=== PATIENT | female | born 1985 | race Caucasian/White ===

== ENCOUNTER 2017-12-14 08:42 | Outpatient (RCR) | payer OTHER ==
[2016-08-31 02:15] VITALS: Ht 162.6 cm; Wt 55.1 kg
[2017-09-23 15:39] VITALS: BP 114/67
[2017-09-23 16:02] LABS: PLATELET COUNT, AUTOMATED 262 K/uL (150-450)
[2017-09-28 11:27] LABS: PLATELET COUNT, AUTOMATED 312 K/uL (150-450)
[2017-09-28 14:53] VITALS: BP 102/64
[2017-09-29 09:06] VITALS: BP 109/64
--- NOTE | 2017-09-29 17:41 | ONCOLOGY FOLLOW UP NOTE ---
EVENT DATE: September 29, 2017 DIAGNOSES 1. Hereditary hemochromatosis with heterozygous state for HFE gene, C282Y mutation. 2. Hypothyroidism. CHIEF COMPLAINT Patient is here today for followup of her hemachromatosis. HEMATOLOGY HISTORY Patient is a 32-year-old woman who for the last seven years did not have many periods because of repeated pregnancies. She was also maintained on high dose vitamins including iron. Patient was found to have a high iron and high liver function tests recently. Her iron studies on June 07, 2017 showed serum ferritin of 1474 with iron saturation more than 92%, TIBC was less than 211. Her liver enzymes showed mildly elevated ALT and AST, less than one and a half times normal. The patient had an ultrasound of the liver and gallbladder done on January 19, 2017 which showed mild hepatomegaly with increased echogenicity throughout the liver, which can be seen with fatty infiltration or other infiltrative process. Patient had genetic testing for hemochromatosis done on June 10, 2017 which came back positive for homozygous state for C282Y mutation. Patient started phlebotomy sessions in June 2017. After her first phlebotomy the patient got what looks like a vasovagal attack with fainting. She is doing fine currently. HISTORY OF PRESENT ILLNESS Patient is here today for followup of her hemachromatosis, on phlebotomy session currently. Patient is doing fine and she is totally asymptomatic. Patient has been evaluated at [facility] and she is doing fine currently. PAST MEDICAL HISTORY 1. Hereditary hemochromatosis. 2. Hypothyroidism on supplement. PAST SURGICAL HISTORY Cholecystectomy for gallstones. FAMILY HISTORY Negative for hemochromatosis. SOCIAL HISTORY Patient is with one son. 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 Denies any abuse of tobacco or illicit drugs. She occasionally drinks alcohol when she is not . CURRENT MEDICATIONS 1. Levothyroxine 75 mcg daily. 2. Calcium supplement. ALLERGIES No known drug allergies, except for DILAUDID which makes her agitated. REVIEW OF SYSTEMS CONSTITUTIONAL: No appetite or weight change. No fever, chills or sweating. No recent infection. HEENT: Ears: No tinnitus or hearing problem. Nose: No nasal discharge or epistaxis. Throat: No sore throat or mouth ulcers. Eyes: No diplopia or visual changes. RESPIRATORY: No shortness of breath. No cough, expectoration or hemoptysis. CARDIOVASCULAR: No chest pain, orthopnea, or paroxysmal nocturnal dyspnea (PND) . No edema. No palpitations. GASTROINTESTINAL: No nausea or vomiting. No diarrhea or constipation. No change in bowel movements. No heartburn or swallowing difficulties. No abdominal pain. No jaundice. No hematemesis, melena or rectal bleeding. GENITOURINARY: No hematuria or dysuria. MUSCULOSKELETAL: The patient has snore knuckles in the index and the middle fingers of the right hand. NEUROLOGICAL: She has tingling and numbness in the hands and feet sometimes. She has also headache. HEMATOLOGICAL: She is weak, tired and fatigued. SKIN: No skin rash or lumps. PSYCHIATRIC: No anxiety or depression. PHYSICAL EXAMINATION GENERAL: Looks stable. Well-developed, well-nourished, and in no acute distress. VITAL SIGNS: Blood pressure 109/64, pulse 90 per minute, respirations 16 per minute, temperature 98.8, pulse ox 96% on room air. HEENT: Head: Atraumatic. No sinus tenderness to palpation. Eyes: No icterus or conjunctivitis. Mouth and throat: No oral thrush or mucositis. NECK: Supple. No cervical or supraclavicular lymphadenopathy. LUNGS: Clear to auscultation and percussion bilaterally. HEART: Regular rate and rhythm. No gallops, murmurs, clicks or rubs. ABDOMEN: Soft and lax. No tenderness. No hepatosplenomegaly. No masses. EXTREMITIES: No cyanosis, clubbing or edema. LYMPHATICS: No peripheral lymphadenopathy. NEUROLOGICAL: Conscious, alert and oriented times three. No focal motor or sensory deficits. PSYCHIATRIC: Mood and affect appear normal. SKIN: No skin rash, bruise or purpuric eruption. DIAGNOSTIC DATA CBC showed a white count of 6.7, hemoglobin 13, hematocrit 37.4, platelets 212, 000. Serum iron 88, TIBC 232, iron saturation 37.9% and serum ferritin 153. Chem panel is totally normal except for carbon dioxide 20. ASSESSMENT 1. Hereditary hemochromatosis with homozygous state of HFE gene C282Y mutation. Patient currently on induction phlebotomy started June 16, 2017. She started on a weekly basis and currently every other week. Her initial ferritin level was 1474 and currently it is 153. Her iron saturation was initially 92% and currently 37.9%. Patient has been evaluated at [facility] and she had a liver biopsy which showed only focal portal fibrosis. There was evidence of mild microvesicular steatosis and marked iron deposition in her liver. They recommend to keep her iron with ferritin level between 50- 100. I am planning to continue her phlebotomy sessions every other week until we reach ferritin level around 50 and iron saturation below 60%. Then after that we will start maintenance phlebotomy sessions. I am planning to do a phlebotomy every two weeks for three sessions, and I will see her after that with CBC, chem panel and iron studies with ferritin at that time. 2. Hypothyroidism, on treatment. 3. Heterozygous state for factor V Leiden mutation. No indication of prophylactic anticoagulation at the moment as the patient does not have any history of DVT. Patient was advised to avoid hysterogenic compounds and periods of high risk of blood clotting like immobilization for any reason, like traveling for long distances, admission to the hospital, then the patient will need prophylactic Lovenox at that time. PLAN 1. Phlebotomize 500 mL of blood every two weeks for three times starting September 30, 2017. 2. Infuse 500 mL of normal saline before and after phlebotomy sessions. 3. CBC to be checked every two weeks. 4. Patient to return in two months with CBC, chem panel, iron studies with ferritin. 5. Patient is to contact us for any new concerns or complaints. TYRA
[2017-09-30] MEDS: NS(*) 0.9% 500 ML BAG 500 ML IV PRN ×2 (15:47→16:10)
[2017-09-30] MEDS: LIDOCAINE/SOD BICARB 8.4% SYR ID PRN (15:48)
[2017-09-30 16:03] VITALS: BP 100/71
[2017-10-14 15:52] LABS: PLATELET COUNT, AUTOMATED 320 K/uL (150-450)
[2017-10-14] MEDS: LIDOCAINE/SOD BICARB 8.4% SYR ID PRN (16:37)
[2017-10-14] MEDS: NS(*) 0.9% 500 ML BAG 500 ML IV PRN (16:37)
[2017-10-14 17:08] VITALS: BP 105/82
[2017-10-27] MEDS: NS(*) 0.9% 1000 ML BAG 1,000 ML IV PRN (09:30)
[2017-10-27 09:40] VITALS: BP 104/68
[2017-10-27] MEDS: LIDOCAINE/SOD BICARB 8.4% SYR ID PRN (09:44)
[2017-11-09 14:48] VITALS: BP 109/71
[2017-11-09 15:20] LABS: PLATELET COUNT, AUTOMATED 334 K/uL (150-450)
[2017-11-18 15:09] VITALS: BP 112/84
[2017-11-18] MEDS: LIDOCAINE/SOD BICARB 8.4% SYR ID PRN (15:19)
[2017-11-18] MEDS: NS(*) 0.9% 1000 ML BAG 1,000 ML IV PRN (15:30)
[2017-11-21 11:58] VITALS: BP 105/73
[2017-11-24 15:37] VITALS: BP 104/67
--- NOTE | 2017-11-24 20:29 | ONCOLOGY FOLLOW UP NOTE ---
EVENT DATE: November 24, 2017 DIAGNOSES 1. Hereditary hemochromatosis with heterozygous state for HFE gene, C282Y mutation. 2. Hypothyroidism. CHIEF COMPLAINT Patient is here today for followup of her hemochromatosis. HEMATOLOGY HISTORY Patient is a 32-year-old woman who for the last seven years did not have many periods because of repeated pregnancies. She was also maintained on high dose vitamins including iron. Patient was found to have a high iron and high liver function tests recently. Her iron studies on June 07, 2017 showed serum ferritin of 1474 with iron saturation more than 92%, TIBC was less than 211. Her liver enzymes showed mildly elevated ALT and AST, less than one and a half times normal. The patient had an ultrasound of the liver and gallbladder done on January 19, 2017 which showed mild hepatomegaly with increased echogenicity throughout the liver, which can be seen with fatty infiltration or other infiltrative process. Patient had genetic testing for hemochromatosis done on June 10, 2017 which came back positive for homozygous state for C282Y mutation. Patient started phlebotomy sessions in June 2017. After her first phlebotomy the patient got what looks like a vasovagal attack with fainting. She is doing fine currently. HISTORY OF PRESENT ILLNESS Patient is here today for followup of her hereditary hemochromatosis, on induction phlebotomy sessions currently. Patient is doing fine and she is totally asymptomatic, except for easy bruising sometimes. PAST MEDICAL HISTORY 1. Hereditary hemochromatosis. 2. Hypothyroidism on supplement. PAST SURGICAL HISTORY Cholecystectomy for gallstones. FAMILY HISTORY Negative for hemochromatosis. SOCIAL HISTORY Patient is with one son. 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 Denies any abuse of tobacco or illicit drugs. She occasionally drinks alcohol when she is not . CURRENT MEDICATIONS 1. Levothyroxine 75 mcg daily. 2. Calcium supplement. ALLERGIES No known drug allergies, except for DILAUDID which makes her agitated. REVIEW OF SYSTEMS CONSTITUTIONAL: No appetite or weight change. No fever, chills or sweating. No recent infection. HEENT: Ears: No tinnitus or hearing problem. Nose: No nasal discharge or epistaxis. Throat: No sore throat or mouth ulcers. Eyes: No diplopia or visual changes. RESPIRATORY: No shortness of breath. No cough, expectoration or hemoptysis. CARDIOVASCULAR: No chest pain, orthopnea, or paroxysmal nocturnal dyspnea (PND) . No edema. No palpitations. GASTROINTESTINAL: No nausea or vomiting. No diarrhea or constipation. No change in bowel movements. No heartburn or swallowing difficulties. No abdominal pain. No jaundice. No hematemesis, melena or rectal bleeding. GENITOURINARY: No hematuria or dysuria. MUSCULOSKELETAL: The patient has snore knuckles in the index and the middle fingers of the right hand. NEUROLOGICAL: She has tingling and numbness in the hands and feet sometimes. She has also headache. HEMATOLOGICAL: Patient bruises easily. SKIN: No skin rash or lumps. PSYCHIATRIC: No anxiety or depression. PHYSICAL EXAMINATION GENERAL: Looks stable. Well-developed, well-nourished, and in no acute distress. VITAL SIGNS: Blood pressure 104/67, pulse 82 per minute, respirations 16 per minute, temperature 97.7, pulse ox 94% on room air. HEENT: Head: Atraumatic. No sinus tenderness to palpation. Eyes: No icterus or conjunctivitis. Mouth and throat: No oral thrush or mucositis. NECK: Supple. No cervical or supraclavicular lymphadenopathy. LUNGS: Clear to auscultation and percussion bilaterally. HEART: Regular rate and rhythm. No gallops, murmurs, clicks or rubs. ABDOMEN: Soft and lax. No tenderness. No hepatosplenomegaly. No masses. EXTREMITIES: No cyanosis, clubbing or edema. LYMPHATICS: No peripheral lymphadenopathy. NEUROLOGICAL: Conscious, alert and oriented times three. No focal motor or sensory deficits. PSYCHIATRIC: Mood and affect appear normal. SKIN: No skin rash, bruise or purpuric eruption. DIAGNOSTIC DATA CBC showed a white count of 6.6, hemoglobin 13.9, hematocrit 39.7, platelets 260 ,000. Serum iron 95, TIBC 235, iron saturation 40.4% and ferritin level is 89. ASSESSMENT 1. Hereditary hemochromatosis with homozygous state of HFE gene C282Y mutation. Patient currently on induction phlebotomy started June 16, 2017. She started on a weekly basis and currently every other week. Her initial ferritin level was 1474 and currently it is 89. Her iron saturation initially was 92% and currently it is 40.4%. Patient has been evaluated at [facility] and she had a liver biopsy which showed only focal portal fibrosis. There is evidence of cirrhosis. There was mild microvesicular steatosis and marked iron deposition in the liver. They recommend to keep the iron and ferritin level below 50-100. I am planning to have two more phlebotomy sessions , and I will see her after that with CBC and iron studies with ferritin. My target for phlebotomy is to keep the ferritin below 50 and iron saturation below 60%. I explained that to the patient. She is agreeable with the plan of management. We will infuse normal saline 500 mL before and after the phlebotomy sessions. 2. Hypothyroidism, on treatment. 3. Heterozygous state for factor V Leiden mutation. No indication of prophylactic anticoagulation as the patient does not have any history of DVT so far. Patient was advised to avoid hysterogenic compounds, and to use prophylactic Lovenox at periods of increased blood clotting like immobilization for any reason. PLAN 1. Phlebotomize 500 mL of blood every other week for two times, to start November 25, 2017. 2. Infuse 500 mL of normal saline before and after phlebotomy sessions. 3. CBC to be checked prior to each phlebotomy, and to proceed with phlebotomy if hematocrit above 30%. 4. Patient to return in one month with CBC, iron studies with ferritin. 5. Patient is to contact us for any new concerns or complaints. [facility]
[2017-11-25 15:09] VITALS: BP 108/75
[2017-11-25] MEDS: NS(*) 0.9% 1000 ML BAG 1,000 ML IV PRN (15:25)
[2017-11-25] MEDS: LIDOCAINE/SOD BICARB 8.4% SYR ID PRN (15:26)
[2017-12-09] MEDS: LIDOCAINE/SOD BICARB 8.4% SYR ID PRN (15:34)
[2017-12-09] MEDS: NS(*) 0.9% 1000 ML BAG 1,000 ML IV PRN (15:35)
[2017-12-09 15:37] VITALS: BP 111/69
[~2017-12-14] VITALS: Ht 162.6 cm; Wt 55.1 kg
[~2017-12-14 08:42] MED LIST: ACET-1966 PO; ACET-3017 PO; ACYCLOVIR; AMOX500C7 PO; CEPH250C37 PO; DEXTROSE 5%(*) 100 ML BAG 100 ML IVPB PRN; DOCU-416 PO; DOXY-228 PO; HYDR-385 PO; IBU800 PO; IBUP600T22 PO; LEVO50TA86 PO; LOR5/325 PO; MET2 PO; NS(*) 0.9% 100 ML BAG 100 ML IVPB PRN; ONDA4TAB PO; OXYC-865 PO; PREN-127 PO; VALACYCLOVIR PO
[2017-12-14 09:17] VITALS: BP 116/59
[2017-12-15 15:02] VITALS: BP 107/70
--- NOTE | 2017-12-16 14:11 | [facility] ONCOLOGY NOTE ---
EVENT DATE: December 15, 2017 DIAGNOSES 1. Hereditary hemochromatosis with heterozygous state for HFE gene, C282Y mutation. 2. Hypothyroidism. CHIEF COMPLAINT Patient is here today for followup of her hemochromatosis. HEMATOLOGY HISTORY Patient is a 32-year-old woman who for the last seven years did not have many periods because of repeated pregnancies. She was also maintained on high dose vitamins including iron. Patient was found to have a high iron and high liver function tests recently. Her iron studies on June 07, 2017 showed serum ferritin of 1474 with iron saturation more than 92%, TIBC was less than 211. Her liver enzymes showed mildly elevated ALT and AST, less than one and a half times normal. The patient had an ultrasound of the liver and gallbladder done on January 19, 2017 which showed mild hepatomegaly with increased echogenicity throughout the liver, which can be seen with fatty infiltration or other infiltrative process. Patient had genetic testing for hemochromatosis done on June 10, 2017 which came back positive for homozygous state for C282Y mutation. Patient started phlebotomy sessions in June 2017. After her first phlebotomy the patient got what looks like a vasovagal attack with fainting. She is doing fine currently. HISTORY OF PRESENT ILLNESS Patient is here today for followup of her hereditary hemochromatosis, currently on induction phlebotomy sessions. She is doing very well currently and denies any complaint today. PAST MEDICAL HISTORY 1. Hereditary hemochromatosis. 2. Hypothyroidism on supplement. PAST SURGICAL HISTORY Cholecystectomy for gallstones. FAMILY HISTORY Negative for hemochromatosis. SOCIAL HISTORY Patient is with one son. 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 Denies any abuse of tobacco or illicit drugs. She occasionally drinks alcohol when she is not . CURRENT MEDICATIONS 1. Levothyroxine 75 mcg daily. 2. Calcium supplement. ALLERGIES No known drug allergies, except for DILAUDID which makes her agitated. REVIEW OF SYSTEMS CONSTITUTIONAL: No appetite or weight change. No fever, chills or sweating. No recent infection. HEENT: Ears: No tinnitus or hearing problem. Nose: No nasal discharge or epistaxis. Throat: No sore throat or mouth ulcers. Eyes: No diplopia or visual changes. RESPIRATORY: No shortness of breath. No cough, expectoration or hemoptysis. CARDIOVASCULAR: No chest pain, orthopnea, or paroxysmal nocturnal dyspnea (PND) . No edema. No palpitations. GASTROINTESTINAL: No nausea or vomiting. No diarrhea or constipation. No change in bowel movements. No heartburn or swallowing difficulties. No abdominal pain. No jaundice. No hematemesis, melena or rectal bleeding. GENITOURINARY: No hematuria or dysuria. MUSCULOSKELETAL: No pain in the muscles, joints or bones. NEUROLOGICAL: No tingling or numbness in the hands or feet. No headaches or convulsions. HEMATOLOGIC/LYMPHATIC: No bleeding or easy bruising. No weakness or fatigued. No enlarged lymph nodes. SKIN: No skin rash or lumps. PSYCHIATRIC: No anxiety or depression. PHYSICAL EXAMINATION GENERAL: Looks stable. Well-developed, well-nourished, and in no acute distress. VITAL SIGNS: Blood pressure 107/70, pulse 71 per minute, respirations 16 per minute, temperature 99.1, pulse oximetry 97% on room air. HEENT: Head: Atraumatic. No sinus tenderness to palpation. Eyes: No icterus or conjunctivitis. Mouth and throat: No oral thrush or mucositis. NECK: Supple. No cervical or supraclavicular lymphadenopathy. LUNGS: Clear to auscultation and percussion bilaterally. HEART: Regular rate and rhythm. No gallops, murmurs, clicks or rubs. ABDOMEN: Soft and lax. No tenderness. No hepatosplenomegaly. No masses. EXTREMITIES: No cyanosis, clubbing or edema. LYMPHATICS: No peripheral lymphadenopathy. NEUROLOGICAL: Conscious, alert and oriented times three. No focal motor or sensory deficits. PSYCHIATRIC: Mood and affect appear normal. SKIN: No skin rash, bruise or purpuric eruption. DIAGNOSTIC DATA CBC showed a white count of 5300, hemoglobin 12.8, hematocrit 37.1, platelets 228,000. Iron studies show serum iron 77, TIBC 232, ferritin 67, which is down from 89, iron saturation 33.2%. ASSESSMENT 1. Hereditary hemochromatosis with homozygous state of HFE gene C282Y mutation. Patient currently on induction phlebotomy sessions started June 16, 2017. She started initially on a weekly basis and currently every other week. Her initial ferritin was 1474 and currently it is 67. Iron saturation was 92%, and currently 33.2%. Patient has been evaluated at [facility] and she had a liver biopsy which showed only focal portal fibrosis. There is evidence of cirrhosis. There was mild microvesicular steatosis and marked iron deposition in the liver. They recommended to keep her iron and ferritin level below 50-100. I am planning to keep her ferritin below 50, so I am planning to proceed with another three phlebotomies every other week. I am planning also to infuse normal saline 500 mL before and after the procedure. I will see her again in two months with CBC, iron studies with ferritin and chem panel. In the maintenance sessions, I am planning to keep her iron saturation below 60% and serum ferritin below 50. 2. Hypothyroidism, on treatment. 3. Heterozygous state for factor V Leiden mutation. No indication of prophylactic anticoagulation, as the patient does not have any history of deep vein thrombosis, but I will use prophylactic Lovenox at periods of increased risk of blood clotting like traveling for a long distance. PLAN 1. Phlebotomize 500 mL of blood every other week for three times. 2. Infuse 500 mL of normal saline before and after the phlebotomy sessions. 3. CBC to be checked prior to each phlebotomy, and to proceed with phlebotomy if the hematocrit is above 30%. 4. Patient to return in two months with CBC, iron studies with ferritin and chem panel. 5. Patient is to contact us for any new concerns or complaints. TYRA
== END 2017-12-21 ==
LOC: SPU 08:42
PROVIDERS: ATTEND Internal Medicine Hematology
DX: E83.110 Hereditary hemochromatosis (principal); E03.9 Hypothyroidism, unspecified; D68.51 Activated protein C resistance; R53.1 Weakness; R53.83 Other fatigue
CPT/HCPCS: 36415; 82728; 83540; 83550; 85025; 85027; 96360; 99195; 99212; J7030; J7040; 82040; 82247; 82310; 82374; 82435; 82565; 82947; 84075; 84132; 84155; 84295; 84450; 84460; 84520

== ENCOUNTER 2018-01-26 15:30 | Outpatient (RCR) | payer OTHER ==
[2016-08-31 02:15] VITALS: Wt 55.6 kg
[2017-12-23 15:12] VITALS: BP 112/71
[2017-12-23] MEDS: LIDOCAINE/SOD BICARB 8.4% SYR SC PRN (16:00)
[2017-12-23] MEDS: NS(*) 0.9% 500 ML BAG 500 ML IV PRN ×2 (16:22→16:55)
[2017-12-23 16:56] VITALS: BP 112/74
[2018-01-06 15:49] VITALS: BP 108/76
[2018-01-06] MEDS: NS(*) 0.9% 500 ML BAG 500 ML IV PRN ×2 (16:06→16:27)
[2018-01-06] MEDS: LIDOCAINE/SOD BICARB 8.4% SYR SC PRN (16:07)
[2018-01-06 16:40] VITALS: BP 112/68
[2018-01-20 15:38] VITALS: BP 112/64
[2018-01-20] MEDS: NS(*) 0.9% 500 ML BAG 500 ML IV PRN (16:51)
[2018-01-20] MEDS: LIDOCAINE/SOD BICARB 8.4% SYR SC PRN (16:56)
[2018-01-25 12:10] LABS: PLATELET COUNT, AUTOMATED 286 K/uL (150-450)
[2018-01-25 13:27] VITALS: BP 98/68
[~2018-01-26 15:30] MED LIST changes: +ALTEPLASE RECOMB 2 MG VIAL IVP PRN; +WATER FOR INJ,STERILE 20 ML IVP PRN
[2018-01-26 15:35] VITALS: BP 90/51
--- NOTE | 2018-01-26 20:45 | ONCOLOGY FOLLOW UP NOTE ---
EVENT DATE: January 26, 2018 DIAGNOSES 1. Hereditary hemochromatosis with heterozygous state for HFE gene, C282Y mutation. 2. Hypothyroidism. CHIEF COMPLAINT Patient is here today for followup of her hemochromatosis. HEMATOLOGY HISTORY Patient is a 32-year-old woman who for the last seven years did not have many periods because of repeated pregnancies. She was also maintained on high dose vitamins including iron. Patient was found to have a high iron and high liver function tests recently. Her iron studies on June 07, 2017 showed serum ferritin of 1474 with iron saturation more than 92%, TIBC was less than 211. Her liver enzymes showed mildly elevated ALT and AST, less than one and a half times normal. The patient had an ultrasound of the liver and gallbladder done on January 19, 2017 which showed mild hepatomegaly with increased echogenicity throughout the liver, which can be seen with fatty infiltration or other infiltrative process. Patient had genetic testing for hemochromatosis done on June 10, 2017 which came back positive for homozygous state for C282Y mutation. Patient started phlebotomy sessions in June 2017. After her first phlebotomy the patient got what looks like a vasovagal attack with fainting. She is doing fine currently. HISTORY OF PRESENT ILLNESS Patient is here today for followup of her hereditary hemochromatosis on induction phlebotomy sessions. Patient is doing fine currently. Apart from having occasional headache patient does not have any other complaints. She finished her last phlebotomy session a week ago from now. PAST MEDICAL HISTORY 1. Hereditary hemochromatosis. 2. Hypothyroidism on supplement. PAST SURGICAL HISTORY Cholecystectomy for gallstones. FAMILY HISTORY Negative for hemochromatosis. SOCIAL HISTORY Patient is with one son. 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 Denies any abuse of tobacco or illicit drugs. She occasionally drinks alcohol when she is not . CURRENT MEDICATIONS 1. Levothyroxine 75 mcg daily. 2. Calcium supplement. ALLERGIES No known drug allergies, except for DILAUDID which makes her agitated. REVIEW OF SYSTEMS CONSTITUTIONAL: No appetite or weight change. No fever, chills or sweating. No recent infection. HEENT: Ears: No tinnitus or hearing problem. Nose: No nasal discharge or epistaxis. Throat: No sore throat or mouth ulcers. Eyes: No diplopia or visual changes. RESPIRATORY: No shortness of breath. No cough, expectoration or hemoptysis. CARDIOVASCULAR: No chest pain, orthopnea, or paroxysmal nocturnal dyspnea (PND) . No edema. No palpitations. GASTROINTESTINAL: No nausea or vomiting. No diarrhea or constipation. No change in bowel movements. No heartburn or swallowing difficulties. No abdominal pain. No jaundice. No hematemesis, melena or rectal bleeding. GENITOURINARY: No hematuria or dysuria. MUSCULOSKELETAL: No pain in the muscles, joints or bones. NEUROLOGICAL: No tingling or numbness in the hands or feet. Patient has occasional headaches. No convulsions. HEMATOLOGIC/LYMPHATIC: No bleeding or easy bruising. No weakness or fatigued. No enlarged lymph nodes. SKIN: No skin rash or lumps. PSYCHIATRIC: No anxiety or depression. PHYSICAL EXAMINATION GENERAL: Looks stable. Well-developed, well-nourished, and in no acute distress. VITAL SIGNS: Blood pressure 90/51, pulse 68 per minute, respirations 16 per minute, temperature 97.4, pulse ox 95% on room air. HEENT: Head: Atraumatic. No sinus tenderness to palpation. Eyes: No icterus or conjunctivitis. Mouth and throat: No oral thrush or mucositis. NECK: Supple. No cervical or supraclavicular lymphadenopathy. LUNGS: Clear to auscultation and percussion bilaterally. HEART: Regular rate and rhythm. No gallops, murmurs, clicks or rubs. ABDOMEN: Soft and lax. No tenderness. No hepatosplenomegaly. No masses. EXTREMITIES: No cyanosis, clubbing or edema. LYMPHATICS: No peripheral lymphadenopathy. NEUROLOGICAL: Conscious, alert and oriented times three. No focal motor or sensory deficits. PSYCHIATRIC: Mood and affect appear normal. SKIN: No skin rash, bruise or purpuric eruption. DIAGNOSTIC DATA CBC showed white count of 7.7, hemoglobin 12.9, hematocrit 36.2, platelets 286, 000. Chem panel totally normal except carbon dioxide 21. Serum iron is 84, TIBC is 281, iron saturation 29.9% and ferritin 30. ASSESSMENT 1. Hereditary hemochromatosis with homozygous state of HFE gene C282Y mutation. Patient started phlebotomy sessions on June 16, 2017. She finished her last phlebotomy on January 20, 2018. Her initial ferritin level was 1474 and currently it is 30, and her iron saturation was 92% and currently 29.9 %. We achieved our target for the phlebotomy, and I am planning to start maintenance phlebotomy sessions, and I will do a phlebotomy whenever her ferritin is above 50 and/or iron saturation more than 60%. I am planning to see her again in three months from now with CBC, chem panel and iron studies with ferritin. Patient has been evaluated at [facility] and she had liver biopsy which showed only focal portal fibrosis with no evidence of cirrhosis. There was mild microvesicular steatosis and marked iron deposition in the liver. I will see the patient again in three months from now. 2. Hypothyroidism, on treatment. 3. Heterozygous state for factor V Leiden mutation. I will consider prophylactic Lovenox at periods of increased blood clotting like traveling for long distance. PLAN 1. Continue followup. 2. Patient to return in three months with CBC, chem panel and iron studies with ferritin. 3. Patient is to contact us for any new concerns or complaints. TYRA
== END 2018-03-22 ==
LOC: ONC 15:30
PROVIDERS: ATTEND Internal Medicine Hematology
DX: E83.110 Hereditary hemochromatosis (principal)
CPT/HCPCS: 36415; 82728; 83540; 83550; 85014; 85025; 85027; 96360; 99195; 99212; J7040; 82040; 82247; 82310; 82374; 82435; 82565; 82947; 84075; 84132; 84155; 84295; 84450; 84460; 84520

== ENCOUNTER 2018-05-02 15:09 | Outpatient (RCR) | payer OTHER ==
[2016-08-31 02:15] VITALS: Wt 58.6 kg
[2018-04-27 09:09] VITALS: BP 104/77
[2018-04-27 09:30] LABS: PLATELET COUNT, AUTOMATED 264 K/uL (150-450)
[2018-04-28 15:25] VITALS: BP 101/69
--- NOTE | 2018-04-28 18:08 | ONCOLOGY FOLLOW UP NOTE ---
EVENT DATE: April 28, 2018 DIAGNOSES 1. Hereditary hemochromatosis with heterozygous state for HFE gene, C282Y mutation. 2. Hypothyroidism. CHIEF COMPLAINT Patient is here today for followup of her hemochromatosis. HEMATOLOGY HISTORY Patient is a 32-year-old woman who for the last seven years did not have many periods because of repeated pregnancies. She was also maintained on high dose vitamins including iron. Patient was found to have a high iron and high liver function tests recently. Her iron studies on June 07, 2017 showed serum ferritin of 1474 with iron saturation more than 92%, TIBC was less than 211. Her liver enzymes showed mildly elevated ALT and AST, less than one and a half times normal. The patient had an ultrasound of the liver and gallbladder done on January 19, 2017 which showed mild hepatomegaly with increased echogenicity throughout the liver, which can be seen with fatty infiltration or other infiltrative process. Patient had genetic testing for hemochromatosis done on June 10, 2017 which came back positive for homozygous state for C282Y mutation. Patient started phlebotomy sessions in June 2017. After her first phlebotomy the patient got what looks like a vasovagal attack with fainting. She is doing fine currently. HISTORY OF PRESENT ILLNESS Patient is here today for followup of her hereditary hemochromatosis. She is totally asymptomatic today. She has sometimes pleuritic chest pain and the patient has a concern about that sometimes. PAST MEDICAL HISTORY 1. Hereditary hemochromatosis. 2. Hypothyroidism on supplement. PAST SURGICAL HISTORY Cholecystectomy for gallstones. FAMILY HISTORY Negative for hemochromatosis. SOCIAL HISTORY Patient is with one son. 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 Denies any abuse of tobacco or illicit drugs. She occasionally drinks alcohol when she is not . CURRENT MEDICATIONS 1. Levothyroxine 75 mcg daily. 2. Calcium supplement. ALLERGIES No known drug allergies, except for DILAUDID which makes her agitated. REVIEW OF SYSTEMS CONSTITUTIONAL: No appetite or weight change. No fever, chills or sweating. No recent infection. HEENT: Ears: No tinnitus or hearing problem. Nose: No nasal discharge or epistaxis. Throat: No sore throat or mouth ulcers. Eyes: No diplopia or visual changes. RESPIRATORY: No shortness of breath. No cough, expectoration or hemoptysis. CARDIOVASCULAR: She has some pleuritic chest pain occasionally No orthopnea, or paroxysmal nocturnal dyspnea (PND). No edema. No palpitations. GASTROINTESTINAL: No nausea or vomiting. No diarrhea or constipation. No change in bowel movements. No heartburn or swallowing difficulties. No abdominal pain. No jaundice. No hematemesis, melena or rectal bleeding. GENITOURINARY: No hematuria or dysuria. MUSCULOSKELETAL: No pain in the muscles, joints or bones. NEUROLOGICAL: No tingling or numbness in the hands or feet. Patient has occasional headaches. No convulsions. HEMATOLOGIC/LYMPHATIC: No bleeding or easy bruising. No weakness or fatigued. No enlarged lymph nodes. SKIN: No skin rash or lumps. PSYCHIATRIC: No anxiety or depression. PHYSICAL EXAMINATION GENERAL: Looks stable. Well-developed, well-nourished, and in no acute distress. VITAL SIGNS: Blood pressure 101/69, pulse 88 per minute, respirations 16 per minute, temperature 97.9, pulse ox 95% on room air. HEENT: Head: Atraumatic. No sinus tenderness to palpation. Eyes: No icterus or conjunctivitis. Mouth and throat: No oral thrush or mucositis. NECK: Supple. No cervical or supraclavicular lymphadenopathy. LUNGS: Clear to auscultation and percussion bilaterally. HEART: Regular rate and rhythm. No gallops, murmurs, clicks or rubs. ABDOMEN: Soft and lax. No tenderness. No hepatosplenomegaly. No masses. EXTREMITIES: No cyanosis, clubbing or edema. LYMPHATICS: No peripheral lymphadenopathy. NEUROLOGICAL: Conscious, alert and oriented times three. No focal motor or sensory deficits. PSYCHIATRIC: Mood and affect appear normal. SKIN: No skin rash, bruise or purpuric eruption. DIAGNOSTIC DATA CBC showed white count of 6.4, hemoglobin 15.2, hematocrit 43.6, platelets 264, 000. Serum iron 177 which is high. TIBC is 259 which is low. Iron saturation was 68.3% which is elevated. Ferritin is normal at 54. ASSESSMENT 1. Hereditary hemochromatosis with homozygous state for HFE gene C282Y mutation. Patient started phlebotomy sessions on June 16, 2017. She finished her last phlebotomy on January 20, 2018. Her initial ferritin was 1474 and currently it is 54. Her iron saturation was 92% and currently 68.3%, which is up from 29.9% her last visit. I am planning to proceed with phlebotomy this time. I am planning to infuse 500 mL of normal saline before and after the phlebotomy. I will see her again in three months with CBC and iron studies with ferritin and chem panel. 2. Hypothyroidism, on treatment. 3. Heterozygous state for factor V Leiden mutation. We will consider prophylactic Lovenox at periods of increased risk of blood clotting, like traveling for long distance. PLAN 1. Phlebotomize 500 mL of blood today. 2. Infuse 500 mL of normal saline before and after blood transfusion. 3. Patient to return in three months with CBC, chem panel and iron studies with ferritin. 4. Patient is to contact us for any new concern or complaints. ANGIED
[~2018-05-02 15:09] MED LIST changes: -ALTEPLASE RECOMB 2 MG VIAL IVP PRN; -DEXTROSE 5%(*) 100 ML BAG 100 ML IVPB PRN; -NS(*) 0.9% 100 ML BAG 100 ML IVPB PRN; -WATER FOR INJ,STERILE 20 ML IVP PRN
[2018-05-02] MEDS ORDERED: NS(*) 0.9% 100 ML BAG 100 ML IVPB PRN (15:30)
[2018-05-02] MEDS ORDERED: ALTEPLASE RECOMB 2 MG VIAL IVP PRN (15:30)
[2018-05-02] MEDS ORDERED: DEXTROSE 5%(*) 100 ML BAG 100 ML IVPB PRN (15:30)
[2018-05-02] MEDS ORDERED: HEPARIN FLSH (PORT) 500 UN/5ML IVP PRN (15:30)
[2018-05-02] MEDS ORDERED: LIDOCAINE/SOD BICARB 8.4% SYR ID PRN (15:30)
[2018-05-02] MEDS ORDERED: WATER FOR INJ,STERILE 20 ML IVP PRN (15:30)
[2018-05-02] MEDS: NS(*) 0.9% 500 ML BAG 500 ML IV PRN ×2 (15:34→16:10)
[2018-05-02 16:10] VITALS: BP 115/72
[2018-07-04] MEDS ORDERED: DOXY1TAB3 PO (09:15)
[2018-07-04] MEDS ORDERED: LEVO88TA45 PO (09:18)
[2018-07-04] MEDS ORDERED: VALA100062 PO (09:18)
[2018-07-04] MEDS ORDERED: PNV11TAB5 (09:19)
== END 2018-07-25 ==
LOC: SPU 15:09
PROVIDERS: ATTEND Internal Medicine Hematology
DX: E83.110 Hereditary hemochromatosis (principal); E03.9 Hypothyroidism, unspecified; D68.51 Activated protein C resistance; Z90.49 Acquired absence of other specified parts of digestive tract
CPT/HCPCS: 36415; 82728; 83540; 83550; 85025; 96360; 99195; 99212; J7040

== ENCOUNTER 2018-07-28 07:10 | Outpatient (RCR) | payer OTHER ==
[2016-08-31 02:15] VITALS: Wt 58.6 kg
[~2018-07-28 07:10] MED LIST changes: +DOXY1TAB3 PO; +LEVO88TA45 PO; +PNV11TAB5; +VALA100062 PO
[2018-07-28 16:36] VITALS: BP 103/67
--- NOTE | 2018-07-29 09:45 | [facility] ONCOLOGY NOTE ---
EVENT DATE: July 28, 2018 DIAGNOSES 1. Hereditary hemochromatosis with heterozygous state for HFE gene, C282Y mutation. 2. Hypothyroidism. 3. Heterozygous state for factor V Leiden. CHIEF COMPLAINT Patient is here today for followup of her hemochromatosis with her current . HEMATOLOGY HISTORY Patient is a 33-year-old woman who for the last seven years did not have many periods because of repeated pregnancies. She was also maintained on high dose vitamins including iron. Patient was found to have a high iron and high liver function tests recently. Her iron studies on June 07, 2017 showed serum ferritin of 1474 with iron saturation more than 92%, TIBC was less than 211. Her liver enzymes showed mildly elevated ALT and AST, less than one and a half times normal. The patient had an ultrasound of the liver and gallbladder done on January 19, 2017 which showed mild hepatomegaly with increased echogenicity throughout the liver, which can be seen with fatty infiltration or other infiltrative process. Patient had genetic testing for hemochromatosis done on June 10, 2017 which came back positive for homozygous state for C282Y mutation. Patient started phlebotomy sessions in June 2017. After her first phlebotomy the patient got what looks like a vasovagal attack with fainting. She is doing fine currently. HISTORY OF PRESENT ILLNESS Patient is here today for followup of her hereditary hemochromatosis. She is complaining of nausea and vomiting from her current . She is in the 15th week of gestation currently. Other than that, she denies any other symptoms. PAST MEDICAL HISTORY 1. Hereditary hemochromatosis. 2. Hypothyroidism on supplement. PAST SURGICAL HISTORY Cholecystectomy for gallstones. FAMILY HISTORY Negative for hemochromatosis. SOCIAL HISTORY Patient is with one son. 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 Denies any abuse of tobacco or illicit drugs. She occasionally drinks alcohol when she is not . CURRENT MEDICATIONS 1. Levothyroxine 75 mcg daily. 2. Calcium supplement. ALLERGIES No known drug allergies, except for DILAUDID which makes her agitated. REVIEW OF SYSTEMS CONSTITUTIONAL: No appetite or weight change. No fever, chills or sweating. No recent infection. HEENT: Ears: No tinnitus or hearing problem. Nose: No nasal discharge or epistaxis. Throat: No sore throat or mouth ulcers. Eyes: No diplopia or visual changes. RESPIRATORY: No shortness of breath. No cough, expectoration or hemoptysis. CARDIOVASCULAR: She has some pleuritic chest pain occasionally No orthopnea, or paroxysmal nocturnal dyspnea (PND). No edema. No palpitations. GASTROINTESTINAL: She has nausea and vomiting from her current . GENITOURINARY: No hematuria or dysuria. MUSCULOSKELETAL: No pain in the muscles, joints or bones. NEUROLOGICAL: No tingling or numbness in the hands or feet. Patient has occasional headaches. No convulsions. HEMATOLOGIC/LYMPHATIC: No bleeding or easy bruising. No weakness or fatigued. No enlarged lymph nodes. SKIN: No skin rash or lumps. PSYCHIATRIC: No anxiety or depression. PHYSICAL EXAMINATION GENERAL: Looks stable. Well-developed, well-nourished, and in no acute distress. VITAL SIGNS: Blood pressure 103/67, pulse 83 per minute, respirations 16 per minute, temperature 98, pulse ox 98% on room air. HEENT: Head: Atraumatic. No sinus tenderness to palpation. Eyes: No icterus or conjunctivitis. Mouth and throat: No oral thrush or mucositis. NECK: Supple. No cervical or supraclavicular lymphadenopathy. LUNGS: Clear to auscultation and percussion bilaterally. HEART: Regular rate and rhythm. No gallops, murmurs, clicks or rubs. ABDOMEN: Soft and lax. No tenderness. No hepatosplenomegaly. No masses. EXTREMITIES: No cyanosis, clubbing or edema. LYMPHATICS: No peripheral lymphadenopathy. NEUROLOGICAL: Conscious, alert and oriented times three. No focal motor or sensory deficits. PSYCHIATRIC: Mood and affect appear normal. SKIN: No skin rash, bruise or purpuric eruption. DIAGNOSTIC DATA None. ASSESSMENT 1. Hereditary hemochromatosis with homozygous state for HFE gene C282Y mutation. Patient started her induction phlebotomy sessions on June 16, 2017 and she achieved a target of ferritin less than 50 and iron saturation less than 60%. Her initial ferritin was 1,474. Her iron saturation was 92% and it dropped to 29.9% Patient currently is in her 15th week of gestation. We had a long discussion today about the role of phlebotomy during and there is no recommendation to do phlebotomy while she is . Secondly, her transferrin will be high due to and also the ferritin will also be higher than normal because of the acute phase reaction from the current . As we are not going to do phlebotomy during , I am not planning to check her iron studies during her and I am planning once she would deliver we will check her iron studies at that time and start phlebotomy sessions if the iron is high. The patient also is liable to have losing blood after delivery and this will also help to decrease her iron. Her baby also will utilize her iron and this also could decrease the high iron. I am planning to see her after delivery with CBC, chem panel, iron studies with ferritin and we will decide about phlebotomy after delivery. 2. Hypothyroidism, on treatment. 3. Heterozygous state for factor V Leiden mutation. Patient did not have any blood clotting in the past. She had three pregnancies without any clotting problem. For this reason, I am not planning to put her on Lovenox during her unless she would develop blood clotting. The patient was advised of regular exercise and not to sit for long periods of time. PLAN 1. Continue followup. 2. Patient to return after her delivery with CBC, chem panel and iron studies with ferritin. 3. We will start Coumadin after delivery of her baby for two months after delivery because this is the highest period at risk for developing blood clot, especially with the presence of heterozygous state for factor V Leiden mutation. 4. Patient is to contact us for any new concern or complaints. TYRA
== END 2018-08-30 11:56 | disposition home or self-care (01) ==
LOC: SPU 07:10
PROVIDERS: ATTEND Internal Medicine Hematology
DX: E83.110 Hereditary hemochromatosis (principal); E03.9 Hypothyroidism, unspecified; D68.51 Activated protein C resistance; Z90.49 Acquired absence of other specified parts of digestive tract; Z3A.15 15 weeks gestation of pregnancy
CPT/HCPCS: 99212

== ENCOUNTER → 2018-10-12 | Outpatient (CLI) | payer OTHER ==
[2016-08-31 02:15] VITALS: BMI 25.7
[~2018-10-12] MED LIST changes: +DIPH0.5D12 IM; +LEVO-3 PO
[2018-10-12 10:25] LABS: PLATELET COUNT, AUTOMATED 235 K/uL (150-450)
== END ==
LOC: LAB 09:26
PROVIDERS: ATTEND Obstetrics & Gynecology
DX: O09.92 Supervision of high risk pregnancy, unspecified, second trimester (principal); O99.280 Endocrine, nutritional and metabolic diseases complicating pregnancy, unspecified trimester; E83.119 Hemochromatosis, unspecified
CPT/HCPCS: 36415; 82040; 82247; 82310; 82374; 82435; 82565; 82728; 82947; 82950; 83540; 83550; 84075; 84132; 84155; 84295; 84443; 84450; 84460; 84520; 85025

== ENCOUNTER → 2018-12-22 | Outpatient (CLI) | payer OTHER ==
[2016-08-31 02:15] VITALS: BMI 25.7
== END ==
LOC: LAB 08:58
PROVIDERS: ATTEND Obstetrics & Gynecology
DX: Z36.85 Encounter for antenatal screening for Streptococcus B (principal)
CPT/HCPCS: 87081

== ENCOUNTER → 2018-12-28 | Outpatient (CLI) | payer OTHER ==
[2016-08-31 02:15] VITALS: BMI 25.7
--- NOTE | 2018-12-28 09:43 | RADIOLOGY IMAGING REPORT ---
FACILITY: [facility] PATIENT NAME: Jennifer Wolf : 1985 MR: [id number] V: [id number] EXAM DATE: ORDERING PHYSICIAN: FREDO CUEVAS TECHNOLOGIST: Location: [facility] Patient: Jennifer Wolf : 1985 Visit/Account:[id number] Date of Sevice: 12/28/2018 Obstetric ultrasound HISTORY: KIARA COMPARISON: 07/04/2018. FINDINGS: Standard transabdominal obstetric ultrasound. Placenta: Unremarkable fundal placenta. anatomic survey: Cephalic presentation. anatomic survey was not performed. The visualiz ed structures are unremarkable. Parameters: Biparietal diameter: 8.8 cm, 35 weeks, 4 days, 32nd percentile Head circumference: 32.1 cm, 36 weeks, 2 days, 16th percentile Abdominal circumference: 33.1 cm, 37 weeks, 0 days, 74th percentile Femur length: 7 cm, 35 weeks, 6 days, 29th percentile Composite gestational age based on Hadlock criteria is 36 weeks, 2 days for an estimated delivery fabiana e of 01/23/2019. Estimated weight is 2943 g which is at the 51st percentile based on LMP. heart rate: 152 bpm. Amniotic fluid index (KIARA): 11.9 cm. Largest pocket: 4.4 cm. IMPRESSION: Live intrauterine with a composite gestational age of 36 weeks, 2 days for an e stimated delivery date of 01/23/2019. Report Dictated By: Stew Hendrix MD at 12/28/2018 9:28 AM Report E-Signed By: Stew Hendrix MD at 12/28/2018 9:39 AM WSN:[id number]
== END ==
LOC: RAD 08:03
PROVIDERS: ATTEND Obstetrics & Gynecology
DX: Z02.9 Encounter for administrative examinations, unspecified (principal)

== ENCOUNTER 2019-01-02 20:54 | Outpatient (CLI) | payer OTHER ==
[~2019-01-02] VITALS: Ht 160 cm; Wt 70.8 kg
[2019-01-02] MEDS ORDERED: LR(*) 1000 ML BAG 1,000 ML IV PRN (20:55)
[2019-01-02] MEDS ORDERED: DLR(*) 1000 ML BAG 1,000 ML IV PRN (20:55)
[2019-01-02] MEDS ORDERED: LR(*) 1000 ML BAG 1,000 ML IV SCH (22:25)
[2019-01-02 22:45] VITALS: BP 124/87; Ht 160 cm; Wt 70.8 kg
--- NOTE | 2019-01-03 08:28 | History & Physical ---
History of Present Illness Age of Patient: 33 : 5 Para or TPAL: 3 Estimated Gestational Age: 37.5 Chief Complaint Labor eval History of Present Illness Presents for symptoms of labor, having contractions. Cervix 1 cm dilated. uncomplicated and care with IMG. History Allergies: Coded Allergies: hydromorphone (Verified Allergy, Intermediate, UNKNOWN, 07/04/18) no pain control, anxiety/panic cat dander (Verified Allergy, Unknown, sneezing, eye watering, 07/04/18) Social History: , homemaker, lives with and 2 1/2 year old daughter. No noxious habits. Family History: Alcoholism MOTHER Congenital anomalies Congenital anomalies Congenital anomalies FH: multiple sclerosis MOTHER FH: stroke FATHER FH: thyroid condition BROTHER OR SISTER FHx: endocarditis FATHER Med Rec Home Meds Active Scripts Levothyroxine Sodium (LEVOTHYROXINE SODIUM) 100 Mcg Tablet, 100 MCG PO QDAY, #30 TAB 2 Refills Prov:FREDO CUEVAS MD 12/11/18 Reported Medications [id number]/FA/Omega3/Dha/Fish Oil ( Gummies) 400 Mcg-32.5 Mg (25 Mg-7.5 Mg) Tab.chew 07/04/18 Valacyclovir Hcl (VALTREX) 1,000 Mg Tablet, 1000 MG PO Q12H for 4 Days 07/04/18 Review of Systems All Systems Reviewed/Normal: Yes, Except as Noted Exam General Exam Vital Signs Vital Signs Date Time Temp Pulse Resp B/P (MAP) Pulse Ox O2 Delivery O2 Flow Rate FiO2 01/02/19 22:45 98.2 114 20 124/87 (99) 98 Room Air Fetus Heart Tone Variabilty: Moderate FHT Accelerations: 15X15 FHT Category: I Medical Decision Making VTE Prophylasis: Adult Deep Vein Thrombosis/Pulmonary: No Pharmacological Contraindicati: Pt at Low Risk for VTE Mechanical Contraindications: Pt at Low Risk for VTE Assessment and Plan Problems: (1) Uterine contractions during Assessment & Plan: Observe for cervical change and IV hydration. If changes, will turn care over to IMG. If not and contractions decrease with IVFs, will discharge to home with precautions. ALFONSO AGUAYO MD Jan 03, 2019 08:27
== END 2019-01-03 00:10 | disposition home or self-care (01) ==
LOC: L&D 20:54 → UNDOADMOB 20:54 → OB 20:54 → UNDODISOB 01-03 00:10 → L&D 01-03 00:10 → EDSTATUS 01-21 10:20
PROVIDERS: ATTEND Obstetrics & Gynecology
DX: O47.1 False labor at or after 37 completed weeks of gestation (principal); Z3A.37 37 weeks gestation of pregnancy
CPT/HCPCS: 59025; 99213; J7120

== ENCOUNTER → 2019-02-27 | Outpatient (CLI) | payer OTHER ==
[2019-01-02 22:45] VITALS: BMI 27.6
[~2019-02-27] MED LIST changes: -DIPH0.5D12 IM; +DIPH0.5S2 IM; +LEVO75TA73 PO
== END ==
LOC: LAB 10:34
PROVIDERS: ATTEND Obstetrics & Gynecology
DX: E03.9 Hypothyroidism, unspecified (principal); E83.119 Hemochromatosis, unspecified
CPT/HCPCS: 36415; 82728; 83540; 83550; 84443